=== PATIENT | male | born 1995 | race Caucasian/White ===

== ENCOUNTER 2025-02-27 16:39 | Emergency (ER) | payer OTHER ==
[~2025-02-27] VITALS: Ht 177.8 cm; Wt 59.0 kg
[2025-02-27 16:43] VITALS: O2SAT 98
[2025-02-27 16:52] VITALS: BP 122/74; PULSE 110; RESP 18; TEMP 36.4; O2SAT 98
[2025-02-27] MEDS ORDERED: LORAZEPAM 2MG/ML INJ IM STA (17:33)
[2025-02-27] MEDS ORDERED: LORAZEPAM 2MG/ML INJ IV ONE (17:45)
[2025-02-27] MEDS: LORAZEPAM 2MG/ML UD SYRINGE IV SCH (18:01)
== END 2025-02-27 20:05 | disposition home or self-care (01) ==
LOC: ER 16:39
DX: F15.10 Other stimulant abuse, uncomplicated (principal)
CPT/HCPCS: 99283; 96374; J2060